=== PATIENT | male | born 1935 | race Caucasian/White ===

== ENCOUNTER 2016-11-29 21:44 | Inpatient (IN) | payer MEDICARE, OTHER ==
[2016-11-29] MEDS ORDERED: Aspirin Low Dose CHEW TAB* 81 MG PO ONE (21:58)
[2016-11-29] MEDS ORDERED: Nitroglycerin TAB 0.4 MG* 0.4 MG TAB SL PRN (21:58)
--- NOTE | 2016-11-29 22:31 | ED ---
Kush Russell Benjamin, scribed for Silvestre Neville MD on 11/29/16 at 2220 . HPI Chest Pain - HPI Summary HPI Summary: 81yo male with a hx of IN on 2007. Pt has a pacer and a defibrillator put in. 1 hr ago, pt reports having CP and tightness in the same location as 2008s IN episode while at a meeting. Pt reports less intense than his prior IN however. Pt takes ASA daily. CVA. Former smoker. 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/Test Fixture Designer - Onset/Duration: Started Hours Ago - 1 hr ago, Resolved Timing: Constant, Lasting Minutes Initial Severity: Moderate Current Severity: Moderate Chest Pain Location: Diffuse Chest Pain Radiates: No Character: Tightness Aggravating Factor(s): Nothing Alleviating Factor(s): Nothing Associated Signs and Symptoms: Positive: Negative - Allergy/Home Medications Allergies/Adverse Reactions: Allergies Allergy/AdvReac Type Severity Reaction Status Date / Time Clopidogrel [From Plavix] Allergy Rash Verified 11/29/16 23:27 Sulfa Antibiotics Allergy Unknown Verified 11/29/16 23:27 Reaction Details PMH/Surg Hx/FS Hx/Imm Hx Endocrine/Hematology History: Denies: Hx Diabetes, Hx Thyroid Disease Cardiovascular History: Reports: Hx Hypertension, Hx Myocardial Infarction - 2007, Hx Pacemaker/ICD Respiratory History: Denies: Hx Asthma, Hx Chronic Obstructive Pulmonary Disease (COPD) GI History: Denies: Hx Ulcer - Surgical History Surgery Procedure, Year, and Place: Defibrillator placement Infectious Disease History: Denies: Hx Hepatitis, Hx Human Immunodeficiency Virus (HIV), Traveled Outside the in Last 30 Days - Social History Substance Use Type: Reports: None Review of Systems Constitutional: Negative Eyes: Negative ENT: Negative Positive: Chest Pain Respiratory: Negative Gastrointestinal: Negative Genitourinary: Negative Musculoskeletal: Negative Skin: Negative Neurological: Negative Psychological: Normal All Other Systems Reviewed And Are Negative: Yes Physical Exam Triage Information Reviewed: Yes Vital Signs Reviewed: Yes Appearance: Positive: Well-Appearing, No Pain Distress Skin: Positive: Warm Eyes: Positive: ASHLEY ENT: Positive: Hearing grossly normal Neck: Positive: Supple Respiratory/Lung Sounds: Positive: Clear to Auscultation, Breath Sounds Present Cardiovascular: Positive: RRR Abdomen Description: Positive: Nontender, Soft Bowel Sounds: Positive: Present Musculoskeletal: Positive: Strength/ROM Intact Neurological: Positive: Sensory/Motor Intact, Alert, Oriented to Person Place, Time Psychiatric: Positive: Normal Diagnostics - Laboratory Result Diagrams: 11/29/16 23:00 11/29/16 23:00 Lab Statement: Any lab studies that have been ordered have been reviewed, and results considered in the medical decision making process. - Radiology CXR Xray Interpretation: No Acute Changes Radiology Interpretation Completed By: Radiologist - EKG 7769. Cardiac Rate: NL - 71bpm EKG Rhythm: Sinus Rhythm ST Segment: Non-Specific - non specific t wave invertion EKG Interpretation: Inferior IN age indeterminate Chest Pain Course/Dx - Diagnoses Provider Diagnoses: Non-ST elevation IN (NSTEMI) - Provider Notifications Discussed Care Of Patient With: Dr. Contreras (cadiologist) @00:02. Dr. Benitez ( hospitalist) @00:04. Instructed by Provider To: Admit As Inpatient - Critical Care Time Critical Care Time: 30-74 min Discharge - Discharge Plan Condition: Guarded Disposition: ADMITTED TO [facility] The documentation as recorded by the Kush genao Benjamin accurately reflects the service I personally performed and the decisions made by , Silvestre Neville MD.
--- NOTE | 2016-11-29 22:45 | RAD ---
INDICATION: Chest pain. COMPARISON: Comparison is made with a prior study from November 19, 2012. TECHNIQUE: Dual-energy PA and lateral views of the chest were obtained. FINDINGS: The heart is mildly enlarged. There is a dual-chamber transvenous cardiac pacemaker defibrillator present. The lungs are underinflated. There is mild prominence of the interstitial markings. No focal infiltrate or pleural effusion is seen. IMPRESSION: MILD INTERSTITIAL PROMINENCE SUGGESTIVE OF EARLY CONGESTIVE CHANGES.
[2016-11-29 23:16] LABS: Hematocrit 40 % (42-52); Hemoglobin 13.2 g/dl (14.0-18.0); Mean Corpuscular HGB Conc 33 g/dl (31-36); Mean Corpuscular Hemoglobin 30 pg (27-31); Mean Corpuscular Volume 93 fL (80-94); Mean Platelet Volume 9 um3 (7.4-10.4); Red Blood Count 4.33 10^6/ul (4.0-5.4); Red Cell Distribution Width 14 % (10.5-15); White Blood Count 8.2 10^3/ul (3.5-10.8)
[2016-11-29] MEDS ORDERED: Aspirin Low Dose CHEW TAB* 81 MG ONE (23:18)
[2016-11-29 23:32] LABS: Albumin 3.8 g/dL (3.2-5.2); Calcium 8.8 mg/dL (8.6-10.3); EGFR African American 87.6 (>60); EGFR Non-African American 68.1 (>60); Potassium 4.2 mmol/L (3.5-5.0); Total Bilirubin 0.4 mg/dL (0.2-1.0); Total Protein 6.8 g/dL (6.4-8.9)
[2016-11-29 23:39] LABS: Troponin I 1.65 ng/mL (<0.04)
[2016-11-30] MEDS ORDERED: Ticagrelor* 90 MG TAB PO ONE (00:02)
[2016-11-30] MEDS ORDERED: Enoxaparin(*) 80 MG/0.8 ML SYR SUBCUT ONE (00:04)
[2016-11-30] MEDS ORDERED: Enoxaparin(*) 80 MG/0.8 ML SYR SUBCUT SCH (01:00)
[2016-11-30 06:41] LABS: HDL Cholesterol 31.5 mg/dL
[2016-11-30] MEDS ORDERED: Metoprolol Tartrate TAB* 25 MG PO ONE (06:58)
[2016-11-30] MEDS ORDERED: Magnesium Sulfate 2 GM IV* 2 GM/50 ML BAG IVPB ONE (06:59)
--- NOTE | 2016-11-30 07:07 | CONSULT ---
Subjective Date of Service: 11/30/16 Interval History: This is a late entry, patient seen AM of 11/30/2016 Admission and consult Date: 11/30/16 Service: Dr. Benitez/Hospitalist [employer] Worker Dr. Richards PMD Dr. Del Valle CC: Chest pain Reason for consult: Acute PA HISTORY OF PRESENT ILLNESS: Mr. Constantino is a 81-year-old man who when in the [facility] in 2007 had an acute PA (inferior they think) later presented to a hospital several days after and had an inpatient cardiac arrest successful cardioverted at [facility] had ICD and 1 stent. No symptoms since then. Last night at town meeting in [place] had 30 minutes of pain across chest and nausea similar to PA pain but much less severe, self resolved in 30 minutes. No further pain. Ruled in for AMI. Received aspirin, brillinta 180 mg PO x 1, therapeutic lovenox dose x 1. 5 beat NSVT on monitor. He denies any associated ICD discharge, dyspnea, lightheadedness, palpitations or syncope. PAST MEDICAL HISTORY: Significant for hyperlipidemia, hypertension, status post PA in 2007, status post cardiac arrest in 2007, status post AICD status post stent placement. meds: asa 162 mg daily lipitor metoprolol lisiniopril allergies: plavix rash, sulfa allergy soc hx: [employer] in [place], Candy at bedside, quit smoking 40 years ago, rare alcohol use. FAMILY HISTORY: Mother at 82 with CVA. Father at 64 with CVA. Medications Active Medications: Aspirin (Aspirin Ec Low Dose*) 81 mg PO DAILY [facility] Atorvastatin Calcium (Lipitor*) 80 mg PO DAILY [facility] Magnesium Sulfate (Magnesium Sulfate 2 Gm Iv*) 2 gm in 50 mls @ 50 mls/hr IVPB ONCE ONE Stop: 11/30/16 07:58 Lisinopril (Prinivil Tab*) 20 mg PO DAILY [facility] Metoprolol Tartrate (Lopressor Tab*) 25 mg PO BID [facility] Metoprolol Tartrate (Lopressor Tab*) 25 mg PO ONCE ONE Stop: 11/30/16 06:59 Ticagrelor (Brilinta*) 90 mg PO BID [facility] Home Medications: Aspirin [Aspirin EC Lo-Dose] 81 mg PO DAILY 11/19/12 [History Confirmed 11/30/16 ] Atorvastatin* [Lipitor 80 MG*] 80 mg PO DAILY 11/19/12 [History Confirmed ] Cardioblend Supplement 1 tab DAILY 11/19/12 [History Confirmed 11/30/16] Coenzyme Q10 (Ubidecarenone) [Coq10] 50 mg PO DAILY 11/19/12 [History Confirmed 11/30/16] Lisinopril 20 mg PO DAILY 11/19/12 [History Confirmed 11/30/16] Metoprolol Tartrate TAB* [Lopressor TAB*] 25 mg PO BID 11/19/12 [History Confirmed 11/30/16] Review of Systems - Measurements Intake and Output: Intake and Output Last 24 Hours 11/28/16 11/29/16 11/30/16 12/01/16 06:59 06:59 06:59 06:59 Intake Total 0 Balance 0 Weight 187 lb 1 oz Intake: Oral 0 Other: # Bowel Movements 0 # Voids 0 - Review of Systems Constitutional Symptoms: Negative: Weight Gain, Weight Loss, Weakness, Fatigue, Fever, Night Sweats, Unexplained Falls Dermatology: Negative: Normal, Rash, Skin Lesions, Cancer, Skin Lumps HEENT: Negative: Normal, Vertigo, Dental Problems, Tinnitus, Sinus Problem Eyes: Negative: Change in Vision, Double Vision, Eye Pain Thyroid: Negative: Cold Intolerance, Heat Intolerance, Sweatiness, Tremor, Constipation, Palpitations, Primary Hypothyroidism, Primary Hyperthyroidism, Weight Loss, Weight Gain, Change in Skin/Hair Pulmonary: Negative: Cough, Sputum, Hemoptysis, Wheezing, Respiratory Distress, Shortness of Breath, COPD Cardiology: Positive: Chest Pain Negative: Shortness of Breath, Palpitations, Swelling of Ankles, Peripheral Vascular Dis, Edema, Faintness, Syncope, Claudication, Paroxysmal Nocturnal Dyspnea, Orthopnea Gastroenterology: Positive: Nausea Negative: Abdominal Pain, Vomiting, Anorexia, Indigestion, Difficulty Swallowing, Heartburn, Constipation, Diarrhea, Blood in Stools, Change in Bowel Habits, Haematemesis, Melena Genital - Urinary: Negative: Dysuria, Hematuria, Polyuria, Nocturia Genitourinary - Male: Negative: Family Hx of Prostate Cancer Musculoskeletal: Negative: Joint Pain, Joint Stiffness, Arthritis, Osteoporosis, Low Back Pain , Sciatica, Joint Deformities, Kyphoscoliosis Endocrinology: Negative: Thyroid Problems, Adrenal Problems, Diabetes, Hyperglycemia, Hypoglycemia, Diabetic Foot Ulcers Hematologic/Lymphatic: Positive: Use of Antiplatelet Drugs Negative: Hx Leukemia, Hx Lymphoma, Use of Anticoagulant Neurology: Negative: Headaches, Migraines, Change in Vision, Diplopia, Dizziness, Change in Balancing, Change in Coordination, Change in Memory, Change in Speech , Change in Sphincter Function, Change in Walking, Numbness\Paresthesiae, Unexplained Weakness, Hx of Stroke\TIA, Hx Seizures Psychiatry: Negative: Guilt Feelings, Tearfulness, Unusual Fatigue, Suicidal Ideation, Hypomania Allergic/Immunologic: Negative: Hx HIV, Immunocompromise Review of Systems Statement: All other review of systems negative, unless stated above. Objective Vital Signs: Temp Pulse Resp BP Pulse Ox 98.2 F 69 17 166/94 96 11/30/16 01:40 11/30/16 01:40 11/30/16 02:00 11/30/16 01:40 11/30/16 01:40 Appearance: nad, pleasant Ears/Nose/Mouth/Throat: Clear Oropharnyx, Mucous Membranes Moist Neck: NL Appearance and Movements; NL JVP Respiratory: Symmetrical Chest Expansion and Respiratory Effort, Clear to Auscultation Cardiovascular: NL Sounds; No Murmurs; No JVD, RRR, No Edema, - - icd in place Abdominal: NL Sounds; No Tenderness; No Distention Extremities: No Edema Skin: No Rash or Ulcers Neurological: Alert and Oriented x 3 Laboratory Results: 11/29/16 23:00 11/29/16 23:00 Total Bilirubin 0.40 mg/dL (0.2-1.0) 11/29/16 23:00 AST 75 U/L (13-39) H 11/29/16 23:00 ALT 50 U/L (7-52) 11/29/16 23:00 Alkaline Phosphatase 61 U/L (34-104) 11/29/16 23:00 Total Protein 6.8 g/dL (6.4-8.9) 11/29/16 23:00 Albumin 3.8 g/dL (3.2-5.2) 11/29/16 23:00 Globulin 3.0 g/dL (2-4) 11/29/16 23:00 Albumin/Globulin Ratio 1.3 (1-3) 11/29/16 23:00 Triglycerides 87 mg/dL 11/30/16 05:48 Cholesterol 132 mg/dL 02/03/17 05:48 LDL Cholesterol 83 mg/dL 11/30/16 05:48 HDL Cholesterol 31.5 mg/dL 11/30/16 05:48 11/29/16 11/30/16 11/30/16 23:00 01:00 05:48 Troponin I 1.65 H* 5.59 H* 11.09 H* EKG Data: EKG 11/29/2016: Inferior ST elevation over Q waves with reciprocal ST depression 1 /AvL with precordial ischemic T wave inversion Repeat EKG: Improved but not resolved ST elevation and reciprocal changes, deepening ischemic TW inversions V3-V6 None prior for comparison Assessment/Plan In summary, Mr. Constantino is a 81 year old man with a history of an PA in 2007 late presentation with cardiac arrest and secondary prevention ICD, PCI at that time unsure coronary anatomy, plavix allergy rash, HTN, dyslipidemia presents with an acute PA, pain free at this time without recurrent angina, hemodynamic instability or CHF. Had 5 beat NSVT on monitor. - Cardiac catheterization today with intent for revascularization indicated and recommended. Risks, benefits and alternatives discussed and patient would like to proceed. - Decrease aspirin to 81 mg PO daily - Continue brillinta 90 mg J LUIS BID - Continue metoprolol 25 mg PO BID, given a extra 25 mg x 1 now along with IV magnesium for NSVT - Continue lipitor 80 mg po daily - Further management pending angiogram/intervention Thank you for allowing me to participate in the cardiovascular care of this patient. Please do not hesitate to contact me with questions or concerns.
[2016-11-30] MEDS ORDERED: NS 0.9% 1000 ML* 1,000 ML IV SCH ×2 (07:15→09:47)
[2016-11-30 07:18] LABS: Troponin I 11.09 ng/mL (<0.04)
[2016-11-30] MEDS: Ticagrelor* 90 MG TAB PO SCH ×2 (07:32→22:54)
[2016-11-30] MEDS ORDERED: fentaNYL* 50 MCG/ML 2 ML VIAL (100 MCG VIAL) ONE (07:44)
[2016-11-30] MEDS ORDERED: Midazolam* 1 MG/ML 5 ML VIAL (5 MG) ONE (07:44)
[2016-11-30] MEDS ORDERED: Heparin 2 UNITS/ML IVPREMIX* 2,000 ML IV ONE (07:44)
[2016-11-30] MEDS ORDERED: Lidocaine 1% INJ* 10 MG/ML 30 ML SDV ONE (07:45)
[2016-11-30] MEDS ORDERED: Iohexol 350 (CONTRAST) 200 ML MDV IV ONE (07:45)
[2016-11-30] MEDS ORDERED: nitroGLYCERIN DRIP* 250 ML ONE ×2 (08:39→14:30)
[2016-11-30] MEDS ORDERED: Ondansetron INJ* 2 MG/ML VIAL ONE ×2 (08:48→13:16)
[2016-11-30] MEDS ORDERED: Bivalirudin(*) 250 MG VIAL ONE (08:52)
[2016-11-30] MEDS ORDERED: Iodixanol* (CONTRAST) 320 MG/ML 100 ML SDV ONE (08:54)
[2016-11-30] MEDS ORDERED: Aspirin EC Low Dose* 81 MG TAB.EC PO SCH (09:00)
[2016-11-30] MEDS ORDERED: Metoprolol Tartrate TAB* 25 MG PO SCH (09:00)
[2016-11-30] MEDS ORDERED: diPHENhydraMINE IV* 50 MG/ML 1 ml VIAL (BENADRYL) ONE (09:15)
[2016-11-30] MEDS ORDERED: Enalaprilat IV* 1.25 MG/ML 1 ML VIAL (1.25 MG) ONE (09:23)
[2016-11-30] MEDS ORDERED: fentaNYL* 50 MCG/ML 2 ML VIAL (100 MCG VIAL) IV PRN (09:39)
[2016-11-30] MEDS ORDERED: Docusate CAP* 100 MG PO PRN (09:39)
[2016-11-30] MEDS ORDERED: oxyCODONE/Acetamin 5/325 MG* TAB PO PRN (09:39)
[2016-11-30] MEDS ORDERED: Nitroglycerin TAB 0.4 MG* 0.4 MG TAB SL PRN (09:39)
[2016-11-30] MEDS ORDERED: Zolpidem TAB* 5 MG PO PRN (09:39)
[2016-11-30] MEDS ORDERED: Acetaminophen TAB* 325 MG PO PRN (09:39)
--- NOTE | 2016-11-30 09:43 | HP ---
HISTORY AND PHYSICAL: DATE OF ADMISSION: 11/30/16 CHIEF COMPLAINT: Chest pain. HISTORY OF PRESENT ILLNESS: The patient is a 81-year-old gentleman who presents to [facility] with chief complaint that, [facility], he started feeling a pain across his chest from left to right. It was not severe but it felt like his DE in 2007 which was much more severe. It was nonexertional. Then he felt nauseated. He never vomited, however. He went back to the meeting after he thought the pain had subsided. He stayed there for a few minutes but then became painful again. Then he went back to his home and discussed with his , and decided to come to the ER. He never had any shortness of breath. He was a little fatigued. At its worse was a 3/ 10 in severity, and it went away on its own. PAST MEDICAL HISTORY: Significant for hyperlipidemia, hypertension, status post DE in 2007, status post cardiac arrest in 2007, status post AICD, pacemaker placement, status post stent placement. CURRENT MEDICATIONS: 1. Lipitor 80 mg daily. 2. CardioBlend supplement one tablet daily. 3. Coenzyme Q10 50 mg daily. 4. Metoprolol tartrate 25 mg twice daily. 5. Lisinopril 20 mg daily. 6. Aspirin 81 mg daily. ALLERGIES: He has an allergy/adverse reaction to CLOPIDOGREL and SULFA antibiotics. FAMILY HISTORY: Mother at 82 with CVA. Father at 64 with CVA. SOCIAL HISTORY: He quit tobacco 40 years ago. Rare alcohol. No recreational drug use. 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 He is . He has four children. His , Candy Constantino, is healthcare proxy. PHYSICAL EXAMINATION GENERAL: A very pleasant gentleman, lying in bed, in no acute distress. VITAL SIGNS: Temperature 98.2 degrees, heart rate 67 beats per minute, respiratory rate 17 breaths per minute, pulse ox 96%, and blood pressure 166/94. HEENT: Normocephalic and atraumatic. Pupils are equal, round, and reactive to light. Moist mucous membranes. NECK: Supple. No JVD, bruits, palpable thyroid, or lymphadenopathy. CHEST: Clear to auscultation and percussion bilaterally. CARDIOVASCULAR: S1, S2 appreciated. Regular rate and rhythm. ABDOMEN: Positive bowel sounds in all 4 quadrants. Soft, nontender, and nondistended. No hepatosplenomegaly. EXTREMITIES: No cyanosis, clubbing, or edema; +2 peripheral pulses bilaterally. NEUROLOGIC: Alert and oriented x3. Moves all extremities. SKIN: No rashes or abnormalities. DIAGNOSTIC STUDIES/LAB DATA: White count 8.2, hemoglobin 13.2, hematocrit 40, and platelets ____. Sodium 138, potassium 4.2, chloride 107, CO2 25, BUN 21, creatinine 1.05, and glucose 139. Troponin 1.65. Chest x-ray shows mild interstitial prominence suggestive of early congestive changes. EKG that was available for my review showed normal sinus rhythm at a rate of 70 beats per minute, indeterminate axis, Qs in II, III and F. ST depressions at V4 through V6. It should be noted later after the patient was admitted, the first EKG was available for my review; it did show ST elevations in the inferior leads. ASSESSMENT AND PLAN: 1. Non-STEMI. Place the patient on Lovenox and Brilinta as he's ALLERGIC TO PLAVIX. Continue aspirin. Continue atorvastatin. Get Lipitor. Cardiology consult in a.m. 2. FEN. N.p.o., awaiting likely cath in the morning. 3. DVT prophylaxis. On Lovenox. 4. The patient is a full code. TIME SPENT: Over 80 minutes were spent on this H and P, more than 45 minutes of which were spent direct [id number] contact with the patient in evaluation, physical exam, counseling, and coordination of care. CC: Dr. Sushant Del Valle* [id number]/[facility] #: [id number] [facility] SHOREGaurav
[2016-11-30] MEDS ORDERED: Heparin(*) 1000 UNIT/ML 10 ML VIAL CATH LAB IV ONE (09:59)
[2016-11-30] MEDS: Atorvastatin* 80 MG TAB PO SCH (11:19)
[2016-11-30] MEDS: Lisinopril TAB* 10 MG PO SCH (11:20)
--- NOTE | 2016-11-30 14:46 | PN ---
Subjective Date of Service: 11/30/16 Interval History: Patient seen in ICU after cath. Reports feeling weak and tired. Had some N/V and abdominal discomfort after cath which was relieved by brunson placement. No chest pain or SOB. Understands that he had stent placed. Family History: Unchanged from Admission Social History: Unchanged from Admission Past Medical History: Unchanged from Admission Objective Active Medications: Acetaminophen (Tylenol Tab*) 650 mg PO Q4H PRN Aspirin (Aspirin Ec Low Dose*) 81 mg PO DAILY [facility] Aspirin (Aspirin Low Dose Tab*) 81 mg PO DAILY [facility] Atorvastatin Calcium (Lipitor*) 80 mg PO DAILY [facility] Docusate Sodium (Colace Cap*) 100 mg PO DAILY PRN Fentanyl Citrate (Fentanyl*) 25 mcg IV Q2H PRN Sodium Chloride (Ns 0.9% 1000 Ml*) 1,000 mls @ 75 mls/hr IV PER RATE [facility] Lisinopril (Prinivil Tab*) 20 mg PO DAILY [facility] Metoprolol Tartrate (Lopressor Tab*) 25 mg PO BID [facility] Nitroglycerin (Nitroglycerin Tab 0.4 Mg*) 0.4 mg SL Q5M PRN Oxycodone/Acetaminophen (Percocet 5/325 Tab*) 1 tab PO Q6H PRN Ticagrelor (Brilinta*) 90 mg PO BID [facility] Zolpidem Tartrate (Ambien Tab*) 5 mg PO BEDTIME PRN Vital Signs 11/30/16 11/30/16 11/30/16 00:59 01:40 02:00 Temperature 98.2 F Pulse Rate 70 69 Respiratory 17 17 17 Rate Blood Pressure 166/94 (mmHg) O2 Sat by Pulse 96 96 Oximetry 11/30/16 11/30/16 11/30/16 10:45 11:00 11:15 Temperature Pulse Rate 70 70 70 Respiratory 17 8 10 Rate Blood Pressure 153/92 142/84 147/121 (mmHg) O2 Sat by Pulse 97 97 98 Oximetry 11/30/16 13:45 Temperature Pulse Rate 70 Respiratory 18 Rate Blood Pressure 141/82 (mmHg) O2 Sat by Pulse 97 Oximetry Oxygen Devices in Use Now: Nasal Cannula Appearance: Elderly, M, laying in bed in NAD Eyes: No Scleral Icterus Ears/Nose/Mouth/Throat: - - Dry MM Neck: NL Appearance and Movements; NL JVP Respiratory: Symmetrical Chest Expansion and Respiratory Effort, Clear to Auscultation Cardiovascular: NL Sounds; No Murmurs; No JVD, RRR Abdominal: NL Sounds; No Tenderness; No Distention Lymphatic: No Cervical Adenopathy Extremities: No Edema Skin: No Rash or Ulcers, - - R groin with sandbag in place Neurological: Alert and Oriented x 3 Lines/Tubes/Other Access: Clean, Dry and Intact Brunson Result Diagrams: 11/29/16 23:00 11/29/16 23:00 Assess/Plan/Problems-Billing Assessment: STEMI s/p PCI to LAD in a 81 yo M with hx of HTN, HLD, CAD s/p DC/cardiac arrest and ICD placement - Patient Problems (1) STEMI (ST elevation myocardial infarction) Current Visit: Yes Comment: Appreciate Cardiology assistance. Cath on 11/30, stent placed in LAD, reportedly poor EF (awaiting report). Continue ASA, Brilinta, statin, beta-uriel, ACEI (2) HTN (hypertension) Current Visit: Yes Comment: BPs slightly elevated post-cath. Continue meds as above. Was on nitro gtt post-procedure, weaning. (3) DVT prophylaxis Current Visit: Yes Comment: SCDs Status and Disposition: Inpatient for STEMI
[2016-11-30] MEDS ORDERED: Ondansetron INJ* 2 MG/ML VIAL IV PRN (15:03)
[2016-11-30] MEDS ORDERED: Lisinopril TAB* 10 MG ONE (17:26)
[2016-11-30] MEDS ORDERED: Lisinopril TAB* 10 MG PO ONE (18:00)
[2016-11-30 21:00] LABS: Troponin I 5.33 ng/mL (<0.04)
[2016-11-30 21:25] LABS: Albumin 3.9 g/dL (3.2-5.2); BUN/Creatinine Ratio 16.7 (8-20); Calcium 8.7 mg/dL (8.6-10.3); EGFR African American 113.4 (>60); EGFR Non-African American 88.1 (>60); Globulin 3.1 g/dL (2-4); Total Bilirubin 0.9 mg/dL (0.2-1.0)
[2016-11-30] MEDS: Metoprolol Tartrate TAB* 50 mg PO SCH (22:54)
[2016-11-30] MEDS ORDERED: Metoprolol Tartrate IV* 1 MG/ML 5 ML VIAL IV ONE (23:00)
[2016-11-30] MEDS ORDERED: nitroGLYCERIN DRIP* 25,000 MCG in PREMIX* 0 ML IV SCH (23:45)
[2016-12-01] MEDS: Ondansetron INJ* 2 MG/ML VIAL IV PRN ×3 (00:42→16:57)
[2016-12-01 05:51] LABS: Hematocrit 39 % (42-52); Hemoglobin 12.8 g/dl (14.0-18.0); Mean Corpuscular HGB Conc 33 g/dl (31-36); Mean Corpuscular Hemoglobin 30 pg (27-31); Mean Corpuscular Volume 92 fL (80-94); Mean Platelet Volume 9 um3 (7.4-10.4); Red Blood Count 4.22 10^6/ul (4.0-5.4); Red Cell Distribution Width 14 % (10.5-15); White Blood Count 15.7 10^3/ul (3.5-10.8)
[2016-12-01 06:03] LABS: Albumin 3.7 g/dL (3.2-5.2); BUN/Creatinine Ratio 20.2 (8-20); Calcium 8.8 mg/dL (8.6-10.3); EGFR Non-African American 82.5 (>60); HDL Cholesterol 33.7 mg/dL; Total Bilirubin 1.1 mg/dL (0.2-1.0); Total Protein 6.7 g/dL (6.4-8.9)
[2016-12-01 06:21] LABS: Troponin I 4.67 ng/mL (<0.04)
[2016-12-01] MEDS ORDERED: nitroGLYCERIN DRIP* 25,000 MCG in PREMIX* 0 ML IV SCH (09:24)
--- NOTE | 2016-12-01 09:32 | PN ---
Subjective Date of Service: 12/01/16 Interval History: Seen and examined with at bedside Events from overnight reviewed Developed nausea and vomiting overnight. Subsequently missed brilinta overnight This AM feels dizzy like room is spinning and things are moving when he moves his head. Worse with looking to the left and better/resolved with eyes closed. Mild 2/10 in severity right sided headache. Family History: Unchanged from Admission Social History: Unchanged from Admission Past Medical History: Unchanged from Admission Objective Active Medications: Acetaminophen (Tylenol Tab*) 650 mg PO Q4H PRN PRN Reason: HEADACHE/PAIN Aspirin (Aspirin Low Dose Tab*) 81 mg PO DAILY [facility] Atorvastatin Calcium (Lipitor*) 80 mg PO DAILY [facility] Last Admin: 11/30/16 11:19 Dose: 80 mg Docusate Sodium (Colace Cap*) 100 mg PO DAILY PRN PRN Reason: CONSTIPATION Fentanyl Citrate (Fentanyl*) 25 mcg IV Q2H PRN PRN Reason: PAIN Nitroglycerin/Dextrose 25,000 (mcg/ IV Solution) 250 mls @ 8.4 mls/hr IV .( Initial Rate) [facility] PRN Reason: 14 MCG/MIN Lisinopril (Prinivil Tab*) 20 mg PO DAILY [facility] Last Admin: 11/30/16 11:20 Dose: Not Given Metoprolol Tartrate (Lopressor Tab*) 50 mg PO BID [facility] Last Admin: 11/30/16 22:54 Dose: Not Given Nitroglycerin (Nitroglycerin Tab 0.4 Mg*) 0.4 mg SL Q5M PRN PRN Reason: ANGINA Ondansetron HCl (Zofran Inj*) 4 mg IV Q4H PRN PRN Reason: NAUSEA Last Admin: 12/01/16 00:42 Dose: 4 mg Oxycodone/Acetaminophen (Percocet 5/325 Tab*) 1 tab PO Q6H PRN PRN Reason: PAIN Ticagrelor (Brilinta*) 90 mg PO BID [facility] Last Admin: 11/30/16 22:54 Dose: Not Given Zolpidem Tartrate (Ambien Tab*) 5 mg PO BEDTIME PRN PRN Reason: INSOMNIA Vital Signs 11/30/16 11/30/16 11/30/16 10:08 10:09 10:15 Temperature Pulse Rate 70 70 70 Respiratory 15 13 14 Rate Blood Pressure 156/95 152/101 (mmHg) O2 Sat by Pulse 98 97 98 Oximetry 11/30/16 11/30/16 11/30/16 10:30 10:45 11:00 Temperature Pulse Rate 70 70 70 Respiratory 15 17 8 Rate Blood Pressure 158/96 153/92 142/84 (mmHg) O2 Sat by Pulse 96 97 97 Oximetry 11/30/16 11/30/16 11/30/16 11:15 11:24 11:26 Temperature 97.6 F Pulse Rate 70 69 Respiratory 10 23 Rate Blood Pressure 147/121 131/78 (mmHg) O2 Sat by Pulse 98 97 Oximetry 11/30/16 11/30/16 11/30/16 11:30 11:39 11:45 Temperature 96.7 F Pulse Rate 70 70 70 Respiratory 17 16 18 Rate Blood Pressure 145/79 148/96 148/91 (mmHg) O2 Sat by Pulse 96 97 98 Oximetry 11/30/16 11/30/16 11/30/16 12:00 12:15 12:28 Temperature Pulse Rate 70 82 70 Respiratory 14 20 15 Rate Blood Pressure 143/88 115/89 (mmHg) O2 Sat by Pulse 97 96 97 Oximetry 11/30/16 11/30/16 11/30/16 12:30 12:45 12:46 Temperature Pulse Rate 70 70 Respiratory 12 12 16 Rate Blood Pressure 126/86 135/86 (mmHg) O2 Sat by Pulse 98 97 Oximetry 11/30/16 11/30/16 11/30/16 13:00 13:16 13:19 Temperature Pulse Rate 70 70 69 Respiratory 16 16 14 Rate Blood Pressure 144/91 164/93 144/84 (mmHg) O2 Sat by Pulse 97 95 95 Oximetry 11/30/16 11/30/16 11/30/16 13:30 13:39 13:45 Temperature 97.2 F Pulse Rate 70 70 Respiratory 9 18 Rate Blood Pressure 121/82 141/82 (mmHg) O2 Sat by Pulse 96 97 Oximetry 11/30/16 11/30/16 11/30/16 14:00 14:15 14:30 Temperature Pulse Rate 70 70 70 Respiratory 15 12 14 Rate Blood Pressure 168/88 128/77 126/74 (mmHg) O2 Sat by Pulse 95 96 97 Oximetry 11/30/16 11/30/16 11/30/16 14:45 15:00 15:15 Temperature Pulse Rate 70 70 70 Respiratory 25 23 10 Rate Blood Pressure 128/76 142/82 132/73 (mmHg) O2 Sat by Pulse 97 97 97 Oximetry 11/30/16 11/30/16 11/30/16 15:30 15:45 16:00 Temperature Pulse Rate 70 69 69 Respiratory 10 13 16 Rate Blood Pressure 125/81 130/75 130/76 (mmHg) O2 Sat by Pulse 97 99 98 Oximetry 11/30/16 11/30/16 11/30/16 16:15 16:30 16:45 Temperature Pulse Rate 69 70 70 Respiratory 12 19 26 Rate Blood Pressure 131/68 126/82 137/74 (mmHg) O2 Sat by Pulse 98 98 98 Oximetry 11/30/16 11/30/16 11/30/16 17:00 17:15 17:30 Temperature Pulse Rate 70 70 70 Respiratory 15 19 14 Rate Blood Pressure 132/80 141/79 126/73 (mmHg) O2 Sat by Pulse 99 99 100 Oximetry 11/30/16 11/30/16 11/30/16 17:45 18:00 18:02 Temperature Pulse Rate 70 83 69 Respiratory 13 19 13 Rate Blood Pressure 150/81 148/74 133/74 (mmHg) O2 Sat by Pulse 99 99 96 Oximetry 11/30/16 11/30/16 11/30/16 18:15 18:30 18:45 Temperature Pulse Rate 70 70 70 Respiratory 10 13 12 Rate Blood Pressure 146/71 130/71 (mmHg) O2 Sat by Pulse 96 98 99 Oximetry 11/30/16 11/30/16 11/30/16 19:00 19:15 19:30 Temperature Pulse Rate 70 74 70 Respiratory 9 20 17 Rate Blood Pressure 142/73 156/76 137/76 (mmHg) O2 Sat by Pulse 100 99 98 Oximetry 11/30/16 11/30/16 11/30/16 19:45 20:00 20:35 Temperature 98.2 F Pulse Rate 70 70 70 Respiratory 14 12 13 Rate Blood Pressure 140/73 140/73 (mmHg) O2 Sat by Pulse 98 98 96 Oximetry 11/30/16 11/30/16 11/30/16 20:45 21:00 21:15 Temperature 98 F Pulse Rate 70 70 70 Respiratory 16 16 13 Rate Blood Pressure 129/65 142/63 138/65 (mmHg) O2 Sat by Pulse 94 96 97 Oximetry 11/30/16 11/30/16 11/30/16 21:30 21:45 22:00 Temperature Pulse Rate 71 71 69 Respiratory 15 16 13 Rate Blood Pressure 153/75 148/71 165/84 (mmHg) O2 Sat by Pulse 99 100 99 Oximetry 11/30/16 11/30/16 11/30/16 22:06 22:15 22:30 Temperature Pulse Rate 71 70 70 Respiratory 13 16 11 Rate Blood Pressure 156/82 145/73 130/73 (mmHg) O2 Sat by Pulse 98 98 97 Oximetry 11/30/16 11/30/16 11/30/16 22:45 23:00 23:15 Temperature Pulse Rate 70 69 70 Respiratory 18 20 12 Rate Blood Pressure 143/77 158/84 137/80 (mmHg) O2 Sat by Pulse 96 97 99 Oximetry 11/30/16 11/30/16 11/30/16 23:30 23:33 23:45 Temperature Pulse Rate 78 72 70 Respiratory 22 12 12 Rate Blood Pressure 164/80 130/62 (mmHg) O2 Sat by Pulse 98 98 98 Oximetry 11/30/16 12/01/16 12/01/16 23:47 00:00 00:01 Temperature 97.7 F Pulse Rate 70 70 Respiratory 12 12 Rate Blood Pressure 98/63 (mmHg) O2 Sat by Pulse 96 96 Oximetry 12/01/16 12/01/16 12/01/16 00:07 00:15 00:30 Temperature Pulse Rate 70 70 70 Respiratory 9 16 10 Rate Blood Pressure 110/60 114/60 (mmHg) O2 Sat by Pulse 97 99 99 Oximetry 12/01/16 12/01/16 12/01/16 00:45 00:59 01:00 Temperature Pulse Rate 70 70 Respiratory 10 12 16 Rate Blood Pressure 124/63 145/71 (mmHg) O2 Sat by Pulse 100 99 Oximetry 12/01/16 12/01/16 12/01/16 01:15 01:30 01:45 Temperature Pulse Rate 70 70 70 Respiratory 10 15 18 Rate Blood Pressure 143/64 152/77 137/71 (mmHg) O2 Sat by Pulse 99 100 99 Oximetry 12/01/16 12/01/16 12/01/16 01:59 02:15 02:30 Temperature Pulse Rate 70 70 70 Respiratory 15 12 14 Rate Blood Pressure 136/75 151/82 (mmHg) O2 Sat by Pulse 100 99 100 Oximetry 12/01/16 12/01/1617 02:45 02:50 03:00 Temperature Pulse Rate 70 70 70 Respiratory 13 14 14 Rate Blood Pressure 157/73 153/81 142/71 (mmHg) O2 Sat by Pulse 99 100 99 Oximetry 12/01/16 12/01/16 12/01/16 03:15 03:30 03:45 Temperature Pulse Rate 70 70 70 Respiratory 12 12 12 Rate Blood Pressure 149/69 138/64 148/70 (mmHg) O2 Sat by Pulse 99 100 99 Oximetry 12/01/16 12/01/16 12/01/16 04:00 04:15 04:30 Temperature 99.3 F Pulse Rate 70 70 70 Respiratory 13 18 13 Rate Blood Pressure 141/69 151/71 137/70 (mmHg) O2 Sat by Pulse 99 98 98 Oximetry 12/01/16 12/01/16 12/01/16 04:45 04:53 05:00 Temperature Pulse Rate 70 70 Respiratory 12 12 13 Rate Blood Pressure 132/66 150/75 (mmHg) O2 Sat by Pulse 99 100 Oximetry 12/01/16 12/01/16 12/01/16 05:15 05:30 05:52 Temperature Pulse Rate 70 Respiratory 18 19 Rate Blood Pressure 147/79 138/77 (mmHg) O2 Sat by Pulse 96 Oximetry 12/01/16 12/01/16 12/01/16 06:00 07:00 07:19 Temperature Pulse Rate 70 69 72 Respiratory 11 12 17 Rate Blood Pressure 155/77 (mmHg) O2 Sat by Pulse 98 99 99 Oximetry 12/01/16 12/01/16 12/01/16 07:30 07:45 08:00 Temperature Pulse Rate 71 69 70 Respiratory 12 13 13 Rate Blood Pressure 152/77 155/72 160/68 (mmHg) O2 Sat by Pulse 100 98 99 Oximetry 12/01/16 12/01/16 12/01/16 08:15 08:30 08:45 Temperature Pulse Rate 70 72 70 Respiratory 13 16 12 Rate Blood Pressure 165/56 167/87 159/73 (mmHg) O2 Sat by Pulse 97 96 96 Oximetry 12/01/16 09:00 Temperature Pulse Rate 73 Respiratory 16 Rate Blood Pressure 163/77 (mmHg) O2 Sat by Pulse 92 Oximetry Oxygen Devices in Use Now: Nasal Cannula Appearance: sitting 45 deg in bed, interactive, NAD Eyes: No Scleral Icterus, PERRLA Ears/Nose/Mouth/Throat: NL Teeth, Lips, Gums, Clear Oropharnyx, Mucous Membranes Moist Neck: NL Appearance and Movements; NL JVP, Trachea Midline Respiratory: Symmetrical Chest Expansion and Respiratory Effort, - - rales in b/ l bases Cardiovascular: NL Sounds; No Murmurs; No JVD, RRR Abdominal: NL Sounds; No Tenderness; No Distention, No Hepatosplenomegaly Lymphatic: No Cervical Adenopathy Skin: No Rash or Ulcers, - - right groin access without hematoma, bruit, thrill Neurological: Alert and Oriented x 3, - - [id number] intact, mild nystagmus to left, CN2-12 intact, strength intact, rapid alternating movements intact Lines/Tubes/Other Access: Clean, Dry and Intact Kwan Result Diagrams: 12/01/16 05:35 12/01/16 05:35 Assess/Plan/Problems-Billing Assessment: STEMI s/p PCI to LAD in a 81 yo M with hx of HTN, HLD, CAD s/p AL/cardiac arrest and ICD placement with stay complicated by vertigo and emesis limiting ability to take medications - Patient Problems (1) Vertigo Comment: Rule out head bleed with stat CT Had recent URI 1-2 weeks prior to presentation. Symptoms seem more consistent with BPPH or labrynthitis. Medication effect also likely while on nitro gtt Titrate down nitro gtt Increase zofran Add ativan if unable to tolerate medications (2) HTN (hypertension) Comment: nitro gtt- wean as tolerated Introduce oral meds as we control nausea better If unable to wean drip can consider different IV antihypertensive (3) STEMI (ST elevation myocardial infarction) Comment: Appreciate Cardiology assistance. Cath on 11/30 with stent placed in LAD Continue ASA 81mg, Brilinta, statin, beta-uriel, ACEI If unable to tolerate PO will start integralin with single bolus then IV gtt (4) DVT prophylaxis Comment: SCDs Status and Disposition: Inpatient for STEMI
--- NOTE | 2016-12-01 10:05 | RAD ---
Indication: Post cardiac catheterization. Dizziness and nausea. Assess for intracerebral hemorrhage. Comparison: None. Technique: Noncontrast CT vertex of skull through foramen magnum. Report: Mild prominence of the cerebral sulci. Unremarkable ventricles and basal cisterns. Negative for garrison matter white matter obscuration, intra or extra-axial hemorrhage, or mass effect. Unremarkable orbital contents. No suspicious lesion of the calvarium or skull base. Moderate mucosal thickening in the partially visualized RIGHT maxillary sinus. IMPRESSION: Mild involutional change. No acute intracranial process evident.
[2016-12-01] MEDS ORDERED: LORazepam INJ* 2 MG/ML 1 ML VIAL IV PUSH ONE (11:02)
[2016-12-01] MEDS: Metoprolol Tartrate TAB* 50 mg PO SCH ×2 (11:06→22:09)
[2016-12-01] MEDS: Aspirin Low Dose CHEW TAB* 81 MG PO SCH (11:06)
[2016-12-01] MEDS: Lisinopril TAB* 10 MG PO SCH (11:06)
[2016-12-01] MEDS: Ticagrelor* 90 MG TAB PO SCH ×2 (11:07→22:31)
[2016-12-01] MEDS ORDERED: amLODIPine TAB* 5 MG PO ONE (13:23)
[2016-12-01] MEDS ORDERED: Meclizine TAB* 12.5 MG PO PRN (14:16)
[2016-12-01] MEDS: Atorvastatin* 80 MG TAB PO SCH (17:13)
[2016-12-01] MEDS ORDERED: Lisinopril TAB* 10 MG PO ONE (17:44)
[2016-12-01] MEDS ORDERED: hydrALAZINE IV* 20 MG/ML VIAL IV SLOW PU PRN (19:56)
[2016-12-01] MEDS ORDERED: NS 0.9% 1000 ML* 1,000 ML IV SCH (20:00)
[2016-12-01] MEDS ORDERED: Enalaprilat IV* 1.25 MG/ML 2 ML VIAL (2.5 MG) IV SCH (20:00)
--- NOTE | 2016-12-01 21:53 | RAD ---
Indication: Post coronary angiogram. Progressive neurologic symptoms. Assess for brainstem CVA. Comparison: O 0944 hours December 01, 2016 Technique: Noncontrast CT head. Report: The sulci, ventricles, and basal cisterns are normal for age with mild involutional change. Sol matter white matter differentiation is preserved at the cerebrum and posterior fossa without evidence for edema. No intra or extra axial hemorrhage, mass, or fluid collection detected. Unremarkable orbital contents. Unremarkable calvarium and skull base. Unremarkable scalp. Mild mucosal thickening at the partially visualized RIGHT maxillary sinus. No visualized paranasal sinus fluid levels. Clear mastoid air spaces. IMPRESSION: No evidence for intracranial hemorrhage or gross CT evidence for ischemic stroke. Negative unenhanced head CT for age.
[2016-12-01] MEDS: Enalaprilat IV* 1.25 MG/ML 2 ML VIAL (2.5 MG) IV SCH (22:04)
[2016-12-01] MEDS: Metoprolol Tartrate IV* 1 MG/ML 5 ML VIAL IV SCH (22:08)
[2016-12-02 00:55] LABS: Hematocrit 41 % (42-52); Hemoglobin 13.5 g/dl (14.0-18.0); Mean Corpuscular HGB Conc 33 g/dl (31-36); Mean Corpuscular Hemoglobin 30 pg (27-31); Mean Corpuscular Volume 93 fL (80-94); Mean Platelet Volume 9 um3 (7.4-10.4); Red Blood Count 4.47 10^6/ul (4.0-5.4); Red Cell Distribution Width 14 % (10.5-15); White Blood Count 16.4 10^3/ul (3.5-10.8)
[2016-12-02 01:11] LABS: BUN/Creatinine Ratio 23.5 (8-20); EGFR African American 118.2 (>60); EGFR Non-African American 91.9 (>60); Potassium 3.6 mmol/L (3.5-5.0)
[2016-12-02 01:15] LABS: Troponin I 3.31 ng/mL (<0.04)
[2016-12-02] MEDS ORDERED: Furosemide IV* 10 MG/ML 2 ML VIAL (20 MG) IV SLOW PU ONE (01:45)
[2016-12-02] MEDS ORDERED: Furosemide IV* 10 MG/ML 2 ML VIAL (20 MG) ONE (01:51)
[2016-12-02] MEDS: Enalaprilat IV* 1.25 MG/ML 2 ML VIAL (2.5 MG) IV SCH ×3 (01:56→14:30)
[2016-12-02] MEDS: Metoprolol Tartrate IV* 1 MG/ML 5 ML VIAL IV SCH (04:13)
[2016-12-02 04:27] LABS: FIO2 100
[2016-12-02 04:32] LABS: PCO2 Arterial 48 mmHg (35-45)
[2016-12-02 05:18] LABS: Hematocrit 39 % (42-52); Mean Corpuscular HGB Conc 34 g/dl (31-36); Mean Corpuscular Hemoglobin 31 pg (27-31); Mean Corpuscular Volume 92 fL (80-94); Mean Platelet Volume 9 um3 (7.4-10.4); Red Cell Distribution Width 14 % (10.5-15); White Blood Count 16.8 10^3/ul (3.5-10.8)
[2016-12-02 05:19] LABS: Add Diff/Slide Review? Slide Review Added; Comments Flag Yes
[2016-12-02 05:32] LABS: BUN/Creatinine Ratio 21.7 (8-20); Calcium 8.8 mg/dL (8.6-10.3); EGFR African American 102.1 (>60); EGFR Non-African American 79.4 (>60); Potassium 3.8 mmol/L (3.5-5.0)
--- NOTE | 2016-12-02 08:47 | RAD ---
Indication: Myocardial infarction. Increased work of breathing. Comparison: November 29, 2016 Technique: Upright AP 0038 hours Report: RIGHT atrial and RIGHT ventricular level pacemaker leads without change. Cardiomegaly. Prominent ill-defined central pulmonary vasculature with perihilar opacities. While portable technique limits assessment there is suggestion of a small LEFT pleural effusion. Negative for pneumothorax. Nasogastric tube passes caudal to the inferior margin of the [id number]. IMPRESSION: The constellation of findings is most consistent with mild alveolar pulmonary edema with worsening.
[2016-12-02] MEDS ORDERED: cefTRIAXone VIAL(*) 1,000 MG in NS 0.9% 50 ML* 50 ML IVPB SCH (09:00)
[2016-12-02] MEDS: Ticagrelor* 90 MG TAB PO SCH (09:24)
[2016-12-02] MEDS: Atorvastatin* 80 MG TAB PO SCH (09:24)
[2016-12-02] MEDS: Aspirin Low Dose CHEW TAB* 81 MG PO SCH (09:25)
[2016-12-02] MEDS ORDERED: Piperac/Tazob 3.375 gm in NS* 3.375 GM/100 ML BAG IVPB ONE (09:30)
--- NOTE | 2016-12-02 09:33 | PN ---
Subjective Date of Service: 12/02/16 Interval History: Seen and examined with at bedside Events from yesterday and overnight reviewed Yesterday developed increasing difficulty swallowing associated with horizonatal and vertical diplopia. NG placed in order to administer brilinta. Increased oxygen demand and difficulty breathing overnight. Received lasix and started on on BiPAP. Titrated to facemask this AM then placed on vapotherm. +cough which he feels is difficult to mobilize phlegm. No longer feeling nauseous. No additional vomiting. No chest pain. Feels his right arm is weaker than left. Family History: Unchanged from Admission Social History: Unchanged from Admission Past Medical History: Unchanged from Admission Objective Active Medications: Acetaminophen (Tylenol Tab*) 650 mg PO Q4H PRN PRN Reason: HEADACHE/PAIN Aspirin (Aspirin Low Dose Tab*) 81 mg PO DAILY [facility] Last Admin: 12/02/16 09:25 Dose: 81 mg Atorvastatin Calcium (Lipitor*) 80 mg PO DAILY [facility] Last Admin: 12/02/16 09:24 Dose: 80 mg Docusate Sodium (Colace Cap*) 100 mg PO DAILY PRN PRN Reason: CONSTIPATION Enalaprilat (Vasotec Iv*) 2.5 mg IV Q6H [facility] Last Admin: 12/02/16 08:35 Dose: 2.5 mg Hydralazine HCl (Apresoline Iv*) 5 mg IV SLOW PU Q6H PRN PRN Reason: SYSTOLIC BP GREATER THAN: Nitroglycerin/Dextrose 25,000 (mcg/ IV Solution) 250 mls @ 8.4 mls/hr IV .( Initial Rate) [facility] PRN Reason: 14 MCG/MIN Sodium Chloride (Ns 0.9% 1000 Ml*) 1,000 mls @ 75 mls/hr IV PER RATE [facility] Last Admin: 12/01/16 22:08 Dose: 75 mls/hr Ceftriaxone Sodium 1,000 mg/ (Sodium Chloride) 50 mls @ 200 mls/hr IVPB Q24H [facility] Last Admin: 12/02/16 09:23 Dose: 200 mls/hr Piperacillin Sod/Tazobactam Sod (Zosyn 3.375 Gm In Ns Premix*) 3.375 gm in 100 mls @ 200 mls/hr IVPB ONCE ONE Stop: 12/02/16 09:59 Piperacillin Sod/Tazobactam Sod (Zosyn 3.375 Gm In Ns Premix*) 3.375 gm in 100 mls @ 25 mls/hr IVPB Q8H [facility] Meclizine HCl (Antivert Tab*) 25 mg PO Q8HR PRN PRN Reason: dizziness Last Admin: 12/01/16 17:13 Dose: 25 mg Metoprolol Tartrate (Lopressor Tab*) 25 mg PO BID [facility] Last Admin: 12/02/16 09:25 Dose: 25 mg Nitroglycerin (Nitroglycerin Tab 0.4 Mg*) 0.4 mg SL Q5M PRN PRN Reason: ANGINA Ondansetron HCl (Zofran Inj*) 4 mg IV Q4H PRN PRN Reason: NAUSEA Last Admin: 12/01/16 16:57 Dose: 4 mg Oxycodone/Acetaminophen (Percocet 5/325 Tab*) 1 tab PO Q6H PRN PRN Reason: PAIN Ticagrelor (Brilinta*) 90 mg PO BID [facility] Last Admin: 12/02/16 09:24 Dose: 90 mg Vital Signs 12/01/16 12/01/16 12/01/16 09:30 09:45 10:00 Temperature Pulse Rate 69 73 70 Respiratory 13 18 13 Rate Blood Pressure 157/77 157/89 147/72 (mmHg) O2 Sat by Pulse 94 97 93 Oximetry 12/01/16 12/01/16 12/01/16 10:15 10:30 10:45 Temperature Pulse Rate 70 70 70 Respiratory 16 19 12 Rate Blood Pressure 148/78 150/68 160/74 (mmHg) O2 Sat by Pulse 95 95 93 Oximetry 12/01/16 12/01/16 12/01/16 11:00 11:13 11:15 Temperature Pulse Rate 73 70 Respiratory 15 14 15 Rate Blood Pressure 159/83 153/83 (mmHg) O2 Sat by Pulse 95 93 Oximetry 12/01/16 12/01/16 12/01/16 11:30 11:45 11:48 Temperature Pulse Rate 76 73 79 Respiratory 15 15 15 Rate Blood Pressure 135/70 160/89 (mmHg) O2 Sat by Pulse 95 94 95 Oximetry 12/01/16 12/01/16 12/01/16 12:00 12:15 12:30 Temperature 98.6 F Pulse Rate 80 72 70 Respiratory 18 16 18 Rate Blood Pressure 159/90 157/85 158/83 (mmHg) O2 Sat by Pulse 95 95 96 Oximetry 12/01/16 12/01/16 12/01/16 12:45 13:00 13:15 Temperature Pulse Rate 69 70 70 Respiratory 22 15 18 Rate Blood Pressure 146/85 151/91 151/86 (mmHg) O2 Sat by Pulse 98 97 97 Oximetry 12/01/16 12/01/16 12/01/16 13:30 13:45 14:00 Temperature Pulse Rate 70 70 70 Respiratory 18 16 16 Rate Blood Pressure 139/75 151/76 (mmHg) O2 Sat by Pulse 95 96 95 Oximetry 12/01/16 12/01/16 12/01/16 14:17 14:30 14:45 Temperature Pulse Rate 70 70 70 Respiratory 18 12 16 Rate Blood Pressure 134/62 158/75 163/86 (mmHg) O2 Sat by Pulse 96 96 97 Oximetry 12/01/16 12/01/16 12/01/16 15:00 15:15 15:30 Temperature Pulse Rate 69 70 70 Respiratory 17 18 17 Rate Blood Pressure 135/72 147/79 147/75 (mmHg) O2 Sat by Pulse 97 98 97 Oximetry 12/01/16 12/01/16 12/01/16 15:45 16:00 16:15 Temperature 98.9 F Pulse Rate 70 70 70 Respiratory 18 19 18 Rate Blood Pressure 139/77 126/87 164/82 (mmHg) O2 Sat by Pulse 98 98 96 Oximetry 12/01/16 12/01/16 12/01/16 16:30 16:45 17:00 Temperature Pulse Rate 70 71 70 Respiratory 19 16 16 Rate Blood Pressure 167/71 158/78 155/69 (mmHg) O2 Sat by Pulse 96 96 96 Oximetry 12/01/16 12/01/16 12/01/16 17:30 18:00 18:17 Temperature Pulse Rate 73 91 92 Respiratory 18 20 18 Rate Blood Pressure 156/77 150/78 159/85 (mmHg) O2 Sat by Pulse 95 94 93 Oximetry 12/01/16 12/01/16 12/01/16 18:30 19:00 19:30 Temperature Pulse Rate 97 104 100 Respiratory 22 21 20 Rate Blood Pressure 147/78 136/79 136/84 (mmHg) O2 Sat by Pulse 92 92 91 Oximetry 12/01/16 12/01/16 12/01/16 19:51 20:00 20:30 Temperature 99.9 F Pulse Rate 95 101 Respiratory 22 23 Rate Blood Pressure 148/70 (mmHg) O2 Sat by Pulse 93 91 Oximetry 12/01/16 12/01/16 12/01/16 21:00 21:30 22:00 Temperature Pulse Rate 99 92 97 Respiratory 23 26 22 Rate Blood Pressure 153/79 162/76 142/120 (mmHg) O2 Sat by Pulse 91 95 97 Oximetry 12/01/16 12/01/16 12/01/16 22:20 22:30 23:00 Temperature Pulse Rate 80 84 92 Respiratory 26 26 27 Rate Blood Pressure 152/79 144/74 160/81 (mmHg) O2 Sat by Pulse 99 100 99 Oximetry 12/01/16 12/01/16 12/02/16 23:30 23:50 00:00 Temperature 100.1 F Pulse Rate 104 108 Respiratory 28 32 Rate Blood Pressure 162/79 (mmHg) O2 Sat by Pulse 96 87 Oximetry 12/02/16 12/02/16 12/02/16 00:01 00:18 00:30 Temperature Pulse Rate 101 105 96 Respiratory 29 34 28 Rate Blood Pressure 149/93 160/60 (mmHg) O2 Sat by Pulse 87 97 86 Oximetry 12/02/16 12/02/16 12/02/16 01:00 01:36 01:41 Temperature Pulse Rate 104 113 Respiratory 33 34 31 Rate Blood Pressure 171/91 146/74 (mmHg) O2 Sat by Pulse 98 91 Oximetry 12/02/16 12/02/16 12/02/16 02:00 02:20 02:30 Temperature Pulse Rate 106 102 Respiratory 33 29 30 Rate Blood Pressure 134/70 131/75 (mmHg) O2 Sat by Pulse 97 93 Oximetry 12/02/16 12/02/16 12/02/16 03:00 03:30 03:44 Temperature 98.7 F Pulse Rate 106 102 Respiratory 27 29 Rate Blood Pressure 141/72 138/76 (mmHg) O2 Sat by Pulse 97 97 Oximetry 12/02/16 12/02/16 12/02/16 03:56 04:00 04:30 Temperature Pulse Rate 105 101 Respiratory 32 30 26 Rate Blood Pressure 121/63 131/72 (mmHg) O2 Sat by Pulse 97 98 Oximetry 12/02/16 12/02/16 12/02/16 04:59 05:00 05:23 Temperature Pulse Rate 82 Respiratory 28 21 26 Rate Blood Pressure 130/71 (mmHg) O2 Sat by Pulse 97 Oximetry 12/02/16 12/02/16 12/02/16 05:30 06:00 06:30 Temperature Pulse Rate 77 82 77 Respiratory 28 19 20 Rate Blood Pressure 98/58 116/65 104/58 (mmHg) O2 Sat by Pulse 95 99 97 Oximetry 12/02/16 12/02/16 12/02/16 07:00 07:30 07:54 Temperature Pulse Rate 77 88 Respiratory 21 26 26 Rate Blood Pressure 96/53 112/64 (mmHg) O2 Sat by Pulse 99 100 Oximetry 12/02/16 12/02/16 12/02/16 08:00 08:30 09:00 Temperature 99.0 F Pulse Rate 86 89 Respiratory 16 15 Rate Blood Pressure 122/57 100/70 135/74 (mmHg) O2 Sat by Pulse 100 96 Oximetry Oxygen Devices in Use Now: High Flow Nasal Cannula - 40% Appearance: Sitting up in bed, interactive, NAD Eyes: No Scleral Icterus, PERRLA Ears/Nose/Mouth/Throat: - - dry MM Neck: NL Appearance and Movements; NL JVP, Trachea Midline Respiratory: Symmetrical Chest Expansion and Respiratory Effort, - - diffuse rhonchi that clear with cough Cardiovascular: RRR Abdominal: NL Sounds; No Tenderness; No Distention, No Hepatosplenomegaly Lymphatic: No Cervical Adenopathy Extremities: No Edema, No Clubbing, Cyanosis, - - right access site without hematoma/bruit Neurological: Alert and Oriented x 3, NL Muscle Strength and Tone, - - sensation intact, visual soto intact to confrontation, strength 5/5 upper, intact rapid alternating movements Lines/Tubes/Other Access: Clean, Dry and Intact Kwan Result Diagrams: 12/02/16 05:06 12/02/16 05:06 Assess/Plan/Problems-Billing Assessment: STEMI s/p PCI to LAD in a 81 yo M with hx of HTN, HLD, CAD s/p IN/cardiac arrest and ICD placement with stay complicated by vertigo and emesis limiting ability to take medications and respiratory failure overnight 12/01/16 - Patient Problems (1) Respiratory failure Comment: Hypoxic Suspect PNA and volume overload Received lasix overnight with some improvement. Hold additional diuretics prior to CTA Start zosyn (2) Vertigo Comment: No evidence of hemorrhage Concern for posterior CVA. Neurology consultation Check CTA head/neck Difficulty swallowing and vertigo improving. If remains improved can remove NG tube and reintroduce PO meds (3) HTN (hypertension) Comment: IV enalaprit PO metoprolol through NG tube PRN hydralazine (4) STEMI (ST elevation myocardial infarction) Comment: Appreciate Cardiology assistance. Cath on 11/30 with stent placed in LAD Continue ASA 81mg, Brilinta, statin, beta-uriel, Lisinopril changed to PO metoprolol (5) DVT prophylaxis Comment: SCDs Status and Disposition: Inpatient for STEMI
[2016-12-02] MEDS ORDERED: Metoprolol Tartrate TAB* 25 MG PO SCH (10:00)
--- NOTE | 2016-12-02 11:15 | CONSULT ---
Consult Consult: CRITICAL CARE MEDICINE DATE: 01/30/17 TIME: 945 PRIMARY PROVIDER: Mio REFERRING PROVIDER: Theodore REASON/CHIEF COMPLAINT: Acute hypoxic resp failure HISTORY OF PRESENT ILLNESS: 81 M with h/o CAD, MO, stenting, cardiac arrest 2007 s/p AICD presenting with STEMI to LAD s/p stenting and ICU course complicated by n/v/vertigo, with concern for post circ cva, then progressive to dysarthria and dysphagia last pm with associated acute hypoxic resp failure requiring bipap and now on HFO2 post concern for aspiration. REVIEW OF SYSTEMS: As per HPI. Pt feels like his breahting is ok, able to cough , vision ok. PAST MEDICAL HISTORY: As per HPI. MEDICATIONS: Reviewed. ALLERGIES: Plavix, sulfa SOCIAL HISTORY: Reviewed. [employer]. . FAMILY HISTORY: Noncontributory at present. PHYSICAL EXAM: Vital Signs: Reviewed. Neurologic: mild R sided drift and facial asym, with dysarthria. Cardiovascular: Reg Respiratory: R basilar rales; when resting has a amrit veronica like pattern with mild obstruction Abdomen: soft, nt Extremities: warm LABS: Reviewed. IMAGING: Reviewed. CXR and CTs reviewed MEDICATIONS: Reviewed. ASSESSMENT: 81 M STEMI to LAD Acute hypoxic resp failure CVA - ?shower - PLAN: Neurologic: planning CTA, and given his atherosclerosis would prefer to obtain this with perfusion since he cannot have MRI and see better if we are dealing with potential reversible perfusion patterns given his sx onset course and may be amendable to augmented pressures versus small territorial shower strokes. Neuro to eval as well. Not in a window for TPA nor acute mechanical rescue. Cardiovascular: Cards following. antiplt and regimen per cards. Maintaining SBP ~140 currently. Again, ct may change our target need. Respiratory: dont like his pattern given his acute ailments post MO and CVA. explained to pt and he expressed understanding. If further tongue obstruction or malperfusion curves, may requiring intubation. certianly a component of aspiration and fluid sequestration on lungs. Another reason we need better ventilation before further atelectasis befalls and becomes unamendable to flow rescue. close ICU follow Gastrointestinal: ngt for rx. can wait on feeds but may need ngt support to overcome acute phase shortly, and f/u swallow eval Renal/Metabolic: mobilize lung water. Infectious Disease: abx pre primary team currently. Hematology: stable. Endocrine: reactive hyperglycemia f/u Musculoskeletal: oob gentle Psych/Social: to be updated Supportive and preventative care as ordered. Disposition: ICU; [facility] will f/u Code Status: Full D/w Dr. Agosto. Critical Care Time: 40min FNell Reyes DO
--- NOTE | 2016-12-02 12:49 | RAD ---
INDICATION: Myocardial infarction. Neurologic changes concerning for brainstem infarct. COMPARISON: Noncontrast head CT December 01, 2016. TECHNIQUE: Multidetector CT images were obtained from the aortic arch to the vertex of the head with 80 mL Visipaque 320 IV contrast. Arterial phase of enhancement. Multiplanar reformation including maximum intensity projection. 3-D arterial volume rendering. Stenosis estimations based on denominator of distal arterial diameter. NECK ANGIOGRAM REPORT: Nasogastric tube noted. Atherosclerotic plaque at the aortic arch. Normal configuration of the aortic arch branch vessels. Negative for ostial stenosis. Calcific and noncalcific plaque at the ostium of the RIGHT subclavian artery results in approximate 70% short segment stenosis best visualized on the sagittal reformatted series. Minimal calcific and noncalcific plaque at the RIGHT carotid bulb and proximal internal carotid artery without appreciable resulting stenosis. Mild predominant noncalcific plaque at the LEFT carotid bulb and proximal internal carotid artery without appreciable resulting stenosis. Mild calcific plaque at the ostium of the RIGHT vertebral artery with approximate 50% stenosis resulting. The RIGHT vertebral artery is poorly opacified cephalad to the C3 level and may be occluded. Patent grossly codominant LEFT vertebral artery. NECK ANGIOGRAM IMPRESSION: 1. Approximate 70% short segment stenosis at the ostium of the RIGHT subclavian artery from the brachiocephalic artery. 2. Mild calcific plaque at the ostium of the RIGHT vertebral artery with approximate 50% stenosis resulting. The RIGHT vertebral artery is poorly opacified cephalad to the C3 level and may be occluded. Patent LEFT vertebral artery. 3. Negative for appreciable carotid stenosis. HEAD ANGIOGRAM REPORT: Significant atherosclerotic plaque at the carotid siphons results in approximate 50% bilateral internal carotid artery stenosis. Unremarkable M1 and M2 middle cerebral artery segments as well as the A1 and A2 anterior cerebral artery segments. No definitive anterior indicating artery visualized. No intracranial aneurysm or vascular malformation evident. Normal opacification of the dominant dorsal venous sinuses. No gross enhancing intra-axial lesions evident. Patent basilar artery is supplied by the patent LEFT vertebral artery and is without evidence for stenosis or aneurysm. The posterior inferior cerebellar artery origins are poorly visualized. Unremarkable anterior inferior and superior cerebellar artery origins. Patent posterior cerebral arteries are primarily supplied by the posterior circulation with normal variant hypoplastic posterior communicating arteries. HEAD ANGIOGRAM IMPRESSION: 1. While detail is limited due to magnitude of calcification there is suggestion of approximate 50% bilateral intracranial internal carotid artery stenosis at the carotid siphons. 2. Patent basilar artery is supplied by the patent LEFT vertebral artery and is without evidence for stenosis or aneurysm. CPT II: CPT II Codes: 3100F
[2016-12-02] MEDS ORDERED: Piperac/Tazob 3.375 gm in NS* 3.375 GM/100 ML BAG IVPB SCH (14:00)
--- NOTE | 2016-12-02 16:49 | TRS ---
TRANSFER SUMMARY: DATE OF ADMISSION: 11/29/16 DATE OF TRANSFER: 12/02/16 PRIMARY CARE PROVIDER: Dr. Sushant Del Valle. ATTENDING OF RECORD: Dr. Zander Lieberman. CONSULTATIONS DURING HOSPITAL STAY: 1. Cardiology, Dr. Hardy Jaimes. 2. Neurology, Dr. Nicola Perez. 3. ICU, Dr. Oscar Reyes. PRIMARY DIAGNOSES: 1. Anterior ST elevation myocardial infarction, status post left heart catheterization, placement of drug-eluting stents. 2. 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 3. Hypoxic respiratory failure in the setting of aspiration pneumonia or pneumonitis. SECONDARY DIAGNOSES: 1. Hyperlipidemia. 2. Hypertension. 3. History of coronary artery disease, status post myocardial infarction in 2007. 4. Cardiac arrest in 2007, status post AICD placement in 2007 with permanent pacemaker. HOME MEDICATIONS: 1. Lipitor 80 mg daily. 2. CardioBlend supplement 1 tab daily. 3. Coenzyme Q10 50 mg daily. 4. Metoprolol tartrate 25 mg twice daily. 5. Lisinopril 20 mg daily. 6. Aspirin 81 mg daily. MEDICATIONS ON TRANSFER: Include: 1. Aspirin 81 mg daily. 2. Atorvastatin 80 mg daily. 3. Docusate 100 mg as needed. 4. Vasotec 2.5 mg every 6 hours. 5. Meclizine 25 mg every 8 hours as needed for vertigo. 6. Metoprolol tartrate 25 mg twice daily. 7. Zofran 4 mg IV every 4 hours as needed for nausea. 8. Percocet 5/325 one tablet every 6 hours as needed for pain. 9. Zosyn 3.375 g per hospital's extended infusion protocol. 10. Ticagrelor 90 mg twice daily. FINAL IMAGIN. Head CTA on 12/02/16, impression: Approximately 70% short segment stenosis at the ostium of the right subclavian artery from the brachiocephalic artery. Mild calcific plaque at the ostium of the right vertebral artery with approximately 60% stenosis resulting. \H\The right vertebral artery is poorly opacified cephalad to C3 level, it may be occluded. \N\Patent left vertebral artery. Negative for appreciable carotid stenosis. Head angiogram, all details limited due to magnitude of calcification and suggestion of approximately 50% bilateral intracranial internal carotid artery stenosis at the carotid siphons. Patent basilar artery supplied by the patent left vertebral artery and is without evidence for stenosis or aneurysm. 2. Chest x-ray, 12/02/16, impression: Right atrial and right ventricular level pacemaker leads without change. Cardiomegaly. Prominent ill-defined central pulmonary vasculature with perihilar opacifications. Portable technique limits assessment. There is suggestion of a small left pleural effusion. Negative for pneumothorax. HISTORY OF PRESENT ILLNESS AND HOSPITAL COURSE: A 81-year-old man, past medical history as indicated above including CAD with TX and cardiac arrest, status post placement of an AICD and permanent pacemaker in 2007, presented to the hospital after developing precordial chest pain associated with nausea. He was admitted to the hospital, received cardiac consultation after he ruled in for an TX with troponin I peaking at 11.0. The patient received aspirin loaded with Brilinta 180 mg, dosed with therapeutic dose Lovenox, brought to cardiac catheterization on 11/30/16 where a stent was placed in his LAD without complications. The following day, 12/01/16, the patient developed nausea and vomiting. This persisted throughout the day and eventually developed pseudobulbar symptoms and inability to swallow. CAT scans were negative for evidence of cerebral ischemia and no intracranial hemorrhage. An NG tube was placed so he could continue to receive medications including Brilinta. The following day on the day of transfer, the patient continued to have nausea, vomiting. His swallowing was improved, but he developed a right facial droop associated with weakness in his tongue as well as some weakness in his right arm. A CTA was performed, as indicated above, with concern for possible occlusion of vertebral artery. Discussion was had with Dr. Perez, our neurologist, on receiving transfer center [facility] to transfer the patient to neurological ICU to receive anticoagulation in the setting of suspected vertebral artery clot and tenuous supply to the basilar artery. Dr. Salinas is the receiving physician from the stroke service. All pertinent medications, laboratory data, transfer summary, and imaging will be transferred with the patient. Please feel free to contact this hospital including this author with further questions pertaining to this patient's hospital stay. [id number]/[facility] #: [id number] MTDD
[2016-12-02 18:04] VITALS: BP 154/70
--- NOTE | 2016-12-02 19:49 | CONS ---
NEUROLOGY CONSULTATION: DATE OF CONSULT: 12/02/16 LOCATION: He is in ICU bed 5. REFERRING PHYSICIAN: Dr. Lieberman. CHIEF COMPLAINT: Slurred speech, difficulty swallowing, weakness. HISTORY OF PRESENT ILLNESS: Keenan Constantino is a 81-year-old right-handed man who was admitted on 11/30/16 with chest pain. He has a history of a AK in 2007 and in possible cardiac arrest necessitating a defibrillator and pacemaker. On the day of admission, he apparently was at a meeting and developed chest pain which lasted about 30 minutes. He came in to the emergency room where he had EKG changes consistent with an acute AK. At that point, my understanding is his only symptoms were chest pain. He underwent cardiac catheterization on the following morning. My understanding is that he had a left anterior descending artery stent placed. It is my understanding the evening or night after the catheterization, he developed nausea and vomiting. He felt generally weak. He continued with nausea and vomiting overnight and the following morning reported dizziness. It was aggravated by head movement. He noted some right-sided headache according to Dr. Zander Lieberman's note of 12/01/16. I spoke with Dr. Lieberman yesterday afternoon and there was a question of right facial weakness as well. Over the course of the day yesterday according to his nurse, Radha, and in discussion with Dr. Lieberman last evening, he developed difficulty with swallowing and change in speech. This morning, the swallowing was better, but he persisted with right-sided weakness. As the morning progressed, the swallowing problems persisted or returned. He apparently had some episodic double vision yesterday, but not this morning. He had an NG tube placed yesterday, I believe. He had a CT scan of the brain yesterday morning and again last night which revealed some involutional changes, but no evidence of acute infarctions. In reviewing the studies, there is a fair amount of calcification of his vertebral basilar system. PAST MEDICAL HISTORY: notable for cardiac disease. He has a history of hypertension, hyperlipidemia, quit smoking 40 years ago. He has an AICD and has had cardiac stents placed in 2007. MEDICATIONS: At admission consist of: 1. Lipitor 80 mg p.o. q. day. 2. Aspirin 81 mg p.o. q. day. 3. Metoprolol 25 mg p.o. b.i.d. 4. Lisinopril 20 mg p.o. q. day. Medications currently in the hospital consist of: 1. Metoprolol 25 mg p.o. b.i.d. 2. Ondansetron 4 mg IV q.4 hours p.r.n. nausea. 3. Zosyn 3.375 g IV q.8 hours. 4. Brilinta 90 mg p.o. b.i.d. ALLERGIES: He is allergic to CLOPIDOGREL and SULFA with rashes. REVIEW OF SYSTEMS: Notable for some dull right headache. He feels tired. He does not have double vision at the time of my examination. He does not notice any numbness or pins and needle sensation in his face or limbs. He is able to produce language, but has difficulty articulating. PHYSICAL EXAM: Most recent temperature is 99.3 temporally which is also his T- max. Blood pressure most recently is 138/80, it was high yesterday with a peak systolic at 167, but was lower this morning at one point being down to 98/58. Heart rate is about 70 on the monitor, respiratory rate running 126, oxygen saturation 97% on supplemental oxygen. He looks tired, but is able to converse. Pupils react from about 2.5 to 2 mm bilaterally. Eye movements are completely normal. Funduscopic exam reveals poorly seen fundi, but a sharp optic disc on the right at least. Visual soto seem full to confrontation. There is no ptosis. There is right facial weakness with some sparing of the forehead but not complete sparing. Tongue protrudes to the right. There are some tongue fasciculations on the right, but not clearly on the left. The right palate does not raise well at all and it pulls to the left on attempted phonation. Speech is dysarthric and very soft. Facial sensation to light touch, temperature, and pin are all intact. Hearing is intact as well. Motor exam reveals drift to the right arm, but a pretty good tin assorter. There is some drift to the right leg, but not much and the left side is strong. There is fairly marked dysmetria and yblatj-kb-hcal on the right and finger taps are clumsy on the right as well. Finger taps and wmvzbk-ck-jrla on the left are normal. Sensory exam in the limbs is intact to vibration, temperature, light touch, and pin. There are no asymmetries. Reflexes are symmetrical. Plantar on the left is flexor and the right is equivocal. He is tired, but able to provide a good history. Memory seems to be intact and language is fluent. DIAGNOSTIC STUDIES/LAB DATA: Includes the CT scans described above. CBC this morning notable for spike in his white blood cell count to 16.8, left shift with 93.5% neutrophils. Hemoglobin is 13 and platelet count 220,000. PTT yesterday was 29.6. Chemistry profile this morning notable for glucose 195 and otherwise unremarkable chemistry profile. Troponin this morning is 3.31 with a peak of 11.09 on 11/30/16 at 6 in the morning. IMPRESSION: Progressive infarction which was most likely in the upper brain stem. I have recommended a CT angiogram of the brain after my initial assessment which was subsequently done and I have reviewed it. Preliminarily, it looks like the right vertebral is occluded near the skull base, but the basilar looks pretty intact and the left vertebral looks fairly normal. Going to wait for the report of the radiologist and discuss and then discuss his case with [facility]. For now, we will continue on his current medical therapy. He also has an echocardiogram which is being done this morning. CC: Dr. Jaimes; Dr. Reyes; Dr. Del Valle* [id number]/[facility] #: [id number] Addendum I reviewed the CTA over the phone with Dr. Hanson and then discussed the case with Stroke neurologist Dr. Samayoa (SP?). He recommended transfer to [facility] neuroICU for repeat imaging and heparin therapy and close observation. I discussed the case with Dr. Reyes, Elinor, and Mio as well as Mr. and Nell Constantino recommmending we proceed with transfer. I explained the benefits of stroke subspecialty and NeuroICU care not available here. Approximately 120 minutes was spent in the ICU and down in radiology in direct and continuous patient care. BRIGID
--- NOTE | 2016-12-03 03:15 | CATH ---
CARDIAC CATHETERIZATION AND INTERVENTIONAL REPORT: DATE OF PROCEDURE: 11/30/16 - ROOM #ICU-05 INDICATION: Asked by Dr. Contreras to perform cardiac catheterization on the patient. The patient with transient ST-segment elevation inferior wall [place] with T -wave inversion V4 through V6 with positive troponins, now for cardiac catheterization, rule out presence of critical coronary artery disease. PROCEDURE: Coronary arteriography, left heart catheterization, left ventriculography, primary stenting of the ify-dh-xobyuy LAD with placement of a 2.25 x 15 mm long Xience Alpine drug-eluting stent, and Mynx closure device placement. DESCRIPTION OF PROCEDURE: The patient was interviewed and examined prior to the procedure where the risks and benefits were explained including but not limited to bleeding or blood clots in the insertion sites in addition to myocardial infarction, stroke, renal failure, need for urgent bypass surgery, excessive bleeding, . He and his understood this and wished to proceed. Of note, Dr. Kye Contreras had already discussed the risks and benefits as well with the patient during his interview and they had wished to proceed. The patient was brought to the cardiovascular laboratory, where a formal time-out was performed. The patient was prepped and draped in a sterile fashion. The right groin area was anesthetized with 1% lidocaine. The right femoral artery was cannulated and a 6.5 curve sheath was placed. Diagnostic catheterization: Performed utilizing a FL 4.5 curve left Florencio catheter and a FR 4 curve Florencio 5-Slovenian right coronary catheter. Left heart catheterization: Performed utilizing a 5-Slovenian angled pigtail catheter, advanced to the ascending aorta where central aortic pressure was recorded. The catheter was then passed across the aortic valve into the left ventricle where left ventricular pressure was recorded. Left ventriculography was performed utilizing a total of 28 mL of Visipaque dye at a rate of 14 cc per second. Following this, the catheter was pulled back across the aortic valve to recheck gradient. INTERVENTIONAL PROCEDURE: The patient then received a total of 7000 units of heparin intravenously. The patient had already received Brilinta therapy, loading 180 mg the night before and 90 mg before coming to the cardiovascular laboratory. Guiding views were obtained utilizing a 6-Slovenian VL4 curve left coronary guide catheter. An [employer] 190-cm guide wire was utilized down the left anterior descending artery with primary placement of a 2.25 x 15 mm long Xience Alpine stent which was postdilated to high pressures utilizing a NC Emerge 2.25 x 8 mm long balloon. Following this, the artery was assessed both with the wire and placement wire removed. At the end of the case, an injection was made into the right femoral sheath to assess eligibility to utilize a closure device. It was found to be acceptable for this and such a 6/ 7 Slovenian Mynx closure device was deployed. The total contrast used was a total of 170 mL of contrast, 63 of which was Omnipaque and 107 of which was Visipaque. The radiation exposure included 11.5 minutes of fluoro time. The air kerma radiation was 1019 milligray, the DAP radiation was 6611 microgray per sq. m. Medications given during the procedure had included IV nitroglycerin drip, which was titrated up to attempt blood pressure control in addition to IV Vasotec 0.625 mg. The patient received Versed, fentanyl, and Zofran for nauseousness. The patient also received Benadryl. RESULTS: HEMODYNAMIC DATA: Left heart catheterization - central aortic pressure was recorded at 169/92 with a mean of 124. Left ventricular pressure of 163 over left ventricular end- diastolic pressure of 18 to 20 mmHg. LEFT VENTRICULOGRAPHY: Performed in the MORRIS projection. There was mild underfilling of the apical area but the inferior basilar region was akinetic and smooth suggesting scar tissue or possibly mild aneurysm. The distal inferior wall had mild contractility noted. The apex appeared to have a slightly dyskinetic motion to it. The proximal and mid anterior wall appeared to have normal contractility with mild hypokinesis of the distal anterior wall. The overall ejection fraction as best could be estimated appeared to be approximately 35% to 40% ( closer to 40%). CORONARY ARTERIOGRAPHY: A. LEFT CORONARY ARTERY: 1. Left main - the left main had minimal luminal regularities but no significant obstruction seen. 2. Left anterior descending artery - the proximal portion of the left anterior descending artery had calcium in its proximal portion. The mid portion of the left anterior descending artery appeared to have a 40% to 45% narrowing. The distal portion had an 85% to 90% obstruction noted. First diagonal branch was small in caliber and bifurcated. The second diagonal branch was larger in size and had what appeared to be a 65% to 70% narrowing noted at its ostium. 3. Circumflex artery - a nondominant vessel supplying a thin first obtuse marginal branch and a moderate sized second obtuse marginal branch with a patent stent in it. This vessel bifurcated two times before extending on towards the posterior apical region. No significant obstructions were seen. B. RIGHT CORONARY ARTERY - a subtotally occluded vessel in its midportion. There is some collateralization seen faintly via acute marginal branch and minimal antegrade flow through bridging collaterals. There was also collateral blood flow seen to the distal parts of the posterior descending artery through the left anterior descending artery. INTERVENTION TO MID TO DISTAL LEFT ANTERIOR DESCENDING ARTERY: Successful reduction of 85% to 90% blockage with primary stenting utilizing a 2.25 x 15 mm long Alpine stent dilated to high pressures achieving CAIT-3 flow , no dissection seen, and a -5% residual narrowing. OVERALL ASSESSMENT: Multi-vessel disease involving totally occluded right coronary artery at its midsegment, most likely old with critical 85% to 90% stenosis of the mid-to- distal left anterior descending artery, most likely the culprit vessel with successful intervention as described. The patient will be maintained on dual anti-platelet therapy with aggressive risk factor management. The patient is on the hospitalist service and they will be attending to aggressive risk factor management. Of note, his blood pressure is significantly elevated at this time and we will work on management to bring that blood pressure down to a more normal range with medications over the next 48 hours under both the hospitalist and my guidance. CC: Dr. Sushant Del Valle, [place], [place]; Dr. Jovon Richards, [place], [place] * [id number]/[facility] #: [id number] [facility]
--- NOTE | 2016-12-03 14:59 | ECHO ---
Patient: HANK MOREIRA [facility] Rec#: [id number] : 1935 Date: 12/02/2016 Age: 81y Height: 172.7 cm / 68.0 in Weight: 84.8 kg / 186.9 lbs Sex: M BSA: 2 Room#: ICU 5 Admit Date#: 11/30/2016 Type: Inpatient Referring: Hardy Jaimes MD Reading: Hardy Jaimes MD Collar Stitcher: Adolph Gregorio RDCS CC: Sushant Del Valle MD Transthoracic Echocardiogram Indication: STEMI, S/P PCI BP: 137/79 HR: 67 Rhythm: NSR Findings History: CAD with [facility] in 2007, cardiac arrest in 2007, PCI, AICD, HTN, dyslipidemia, former smoker. This is a LIMITED study that was interrupted for an urgent CT angiogram. Dr. aJimes reviewed the images that were obtained and cancelled the remaining imaging due to the patient's impending transfer to another facility. Conclusions Limited study, incomplete, interrupted for STAT CTA. From limited images there appeared to be virtually akinesis of the proximal to mid inferior wall of the left ventricle. The apex was near seen well enough to comment on with accuracy. The mitral and aortic valves appeared normal by 2D but no Doppler analysis was obtained. Measurements Name Value Normal Range RVIDd (AP) 2D 2.5 cm (0.9 - 2.6) IVSd (2D) 1 cm (0.6 - 1) LVPWd (2D) 0.9 cm (0.6 - 1) LVIDd (2D) 5.5 cm (3.6 - 5.4) LVIDs (2D) 4.1 cm - LV FS (2D) 25 % (25 - 45) Aortic Annulus 2.2 cm (1.4 - 2.6) Ao root diameter (2D) 3.5 cm (2.1 - 3.5) Ascending Ao 2.7 cm (2.1 - 3.4) LA dimension (AP) 2D 4.3 cm (2.3 - 3.8) Name Value Normal Range LVOT diameter 2.5 cm -
== END 2016-12-02 18:45 | disposition short-term general hospital (02) | DRG 246 ==
LOC: ED 21:44 → MEDTELE 11-30 00:45 → ICU 11-30 09:57
PROVIDERS: ADMIT Internal Medicine; ATTEND Internal Medicine
PROC: 027034Z Dilation of Coronary Artery, One Artery with Drug-eluting Intraluminal Device, Percutaneous Approach (ICD-10-PCS; 2016-11-30)
PROC: 4A023N7 Measurement of Cardiac Sampling and Pressure, Left Heart, Percutaneous Approach (ICD-10-PCS; 2016-11-30)
PROC: B211YZZ Fluoroscopy of Multiple Coronary Arteries using Other Contrast (ICD-10-PCS; 2016-11-30)
PROC: B215YZZ Fluoroscopy of Left Heart using Other Contrast (ICD-10-PCS; 2016-11-30)
PROC: 0DH67UZ Insertion of Feeding Device into Stomach, Via Natural or Artificial Opening (ICD-10-PCS; principal; 2016-12-01)
PROC: 3E0G76Z Introduction of Nutritional Substance into Upper GI, Via Natural or Artificial Opening (ICD-10-PCS; 2016-12-01)
PROC: 5A09357 Assistance with Respiratory Ventilation, Less than 24 Consecutive Hours, Continuous Positive Airway Pressure (ICD-10-PCS; 2016-12-02)
DX: I21.09 ST elevation (STEMI) myocardial infarction involving other coronary artery of anterior wall (principal); J96.01 Acute respiratory failure with hypoxia; J69.0 Pneumonitis due to inhalation of food and vomit; I63.111 Cerebral infarction due to embolism of right vertebral artery; I10 Essential (primary) hypertension; R11.2 Nausea with vomiting, unspecified; R42 Dizziness and giddiness; I25.10 Atherosclerotic heart disease of native coronary artery without angina pectoris; R47.81 Slurred speech; I65.23 Occlusion and stenosis of bilateral carotid arteries; I51.7 Cardiomegaly; R13.0 Aphagia; R29.810 Facial weakness; R53.1 Weakness; I70.8 Atherosclerosis of other arteries; E78.5 Hyperlipidemia, unspecified; Z95.810 Presence of automatic (implantable) cardiac defibrillator; I25.2 Old myocardial infarction; Z95.5 Presence of coronary angioplasty implant and graft; Z95.0 Presence of cardiac pacemaker; Z88.8 Allergy status to other drugs, medicaments and biological substances; Z88.2 Allergy status to sulfonamides; Z82.3 Family history of stroke; Z87.891 Personal history of nicotine dependence; Z79.82 Long term (current) use of aspirin
CPT/HCPCS: 36415; 36600; 70450; 70496; 70498; 71010; 71020; 80048; 80053; 80061; 82550; 82553; 82803; 83605; 83735; 83880; 84484; 85025; 85730; 93005; 93308; 93458; 94660; 94760; A9270-GY; C1725; C1760; C1769; C1876; C1887; C9600-LD; J0360; J0583; J0696; J1200; J1644; J1650; J1940; J2060; J2250; J2405; J2543; J3010; J3475; J3490; Q9967